=== PATIENT | male | born 1995 | race Caucasian/White ===

== ENCOUNTER 2025-01-22 17:27 | Emergency (ER) | payer OTHER, SELFPAY ==
--- NOTE | ~2025-01-22 | XR_ITS ---
CLINICAL HISTORY: plantar pain 3 view left foot Comparison: None available Findings: No displaced fracture or dislocation. Mild old deformities about the 1st and 2nd tarsal-metatarsal articulation with osteophyte versus prominent ligament calcification. Mild soft tissue swelling including of the forefoot. No radiopaque retained foreign body. IMPRESSION: 1. No acute fracture or dislocation. This document has been electronically signed by: Vipin Green MD on 01/22/2025 18:46:33
--- NOTE | ~2025-01-22 | XR_ITS ---
CLINICAL HISTORY: L ankle pain, atraumatic 3 view left ankle Comparison: None Findings: No acute displaced fractures or dislocations. Calcific tendinitis of the Achilles insertion. Mild soft tissue swelling with moderate effusion of the ankle No radiopaque foreign body. IMPRESSION: 1. No acute fracture or dislocation. 2. Calcific tendinitis of the Achilles insertion. 3. Ankle effusion present This document has been electronically signed by: Vipin Green MD on 01/22/2025 18:47:38
--- NOTE | ~2025-01-22 | US_ITS ---
CLINICAL HISTORY: L calf pain Venous duplex ultrasound left lower extremity Comparison: None Findings: The visualized deep veins are fully compressible with normal Doppler color flow and spectral tracings. Imaged superficial soft tissues are unremarkable. IMPRESSION: 1. Negative for left lower extremity deep vein thrombosis. This document has been electronically signed by: Vipin Green MD on 01/22/2025 20:03:10
[2025-01-22 17:41] VITALS: BP 144/94; PULSE 90; RESP 20; TEMP 36.8; O2SAT 98; BMI 3749.8
--- NOTE | 2025-01-22 17:45 | ED.LOWEXIN ---
HPI - Extremity Injury (Lower) General Chief Complaint: Extremity Injury, Lower Stated Complaint: left leg pain from knee down Time Seen by Provider: 01/22/25 23:15 Source: patient Limitations: no limitations History of Present Illness ED Provider: Eryn Wiley PA-C HPI Narrative: 29-year-old male presents with left heel/ankle pain. Patient states that he has had ongoing discomfort for a year, however it has increased in severity over the past few days. Associated swelling that extends into the foot. Patient states he is on his feet all day at work, and that he does wear supportive shoes. There was no preceding trauma when his pain began. Related Data Previous Rx's ?Medication ?Instructions ?Recorded ketorolac 10 mg tablet 10 mg PO Q6H PRN pain #20 tabs 01/23/25 Allergies Allergy/AdvReac Type Severity Reaction Status Date / Time No Known Allergies Allergy Verified 01/22/25 17:45 Review of Systems Review of Systems: Yes all other systems are reviewed and are negative Constitutional: Constitutional: Denies fatigue and Denies fever(s) Cardiovascular: Cardiovascular: Denies chest pain and Denies dyspnea Respiratory: Respiratory: Denies dyspnea Musculoskeletal: Musculoskeletal: Reports arthralgias and Reports joint swelling Integumentary/Breasts: Skin/Breast: Denies erythema Endocrine: Endocrine: Denies fatigue PMFSH Past Medical History Attestation statement: The following information was validated with the patient. Social History Social History Advance Directives: No Advance Directives Information Provided: No Physical Exam Vital Signs: Vital Signs: Last Vital Signs Temp 98.2 F 01/22/25 23:18 Pulse 65 01/22/25 23:18 Resp 18 01/22/25 23:18 BP 127/78 01/22/25 23:18 Pulse Ox 98 01/22/25 23:18 O2 Del Method Room Air 01/22/25 23:18 BMI result Body Mass Index 3749.8 Const: Other: Alert Orientation/consciousness: patient oriented x3 Resp: Effort & Inspection: normal respiratory effort Cardio: Other: Normal peripheral perfusion Skin: Other: Warm dry no rash Neuro: General: patient oriented x3, gait normal, no focal motor deficits and CN's II-XI intact bilaterally Extrem: Other: No obvious swelling of the ankle or the foot, patient able to flex and extend, although causes pain in the calf Psych: Other: Cooperative Course Course Course Narrative: This is a Rapid Medical Examination (RME) performed by Rosa Isela Brewster PA-C in triage. Full HPI, ROS, assessment and treatment plan per primary provider in the Main ED. 29 yo male here for eval of left foot pain radiating up into LLE. pain primarily to plantar aspect. stands for prolonged periods of time at work. hx of L foot fracture 1 yr ago. no recent travel/ long car rides. +ttp of left calf. no obvious swelling/deformity to L foot/ankle Plan: labs, imaging Medical Decision Making Medical Decision Making [facility] Narrative: 29-year-old male presents with left heel/ankle pain. Patient states that he has had ongoing discomfort for a year, however it has increased in severity over the past few days. Associated swelling that extends into the foot. Patient states he is on his feet all day at work, and that he does wear supportive shoes. There was no preceding trauma when his pain began. No chronic issues History: Per patient I have considered the following differential diagnoses: Fracture, dislocation, septic joint, gout, sprain, DVT Plan: The patient has had pain for a prolonged period of time, x-rays and ultrasound to rule out DVT were obtained from triage, he has no objective swelling or erythema to suggest a septic joint, furthermore he has retained range of motion with flexion and extension. He has calcific tendinitis of the Achilles, no DVT I have independently reviewed the following tests: Labs: No leukocytosis, not anemic, no electrolyte abnormality noted X-ray left ankle: Findings: No acute displaced fractures or dislocations. Calcific tendinitis of the Achilles insertion. Mild soft tissue swelling with moderate effusion of the ankle No radiopaque foreign body. IMPRESSION: 1. No acute fracture or dislocation. 2. Calcific tendinitis of the Achilles insertion. 3. Ankle effusion present X-ray left foot: 3 view left foot Comparison: None available Findings: No displaced fracture or dislocation. Mild old deformities about the 1st and 2nd tarsal-metatarsal articulation with osteophyte versus prominent ligament calcification. Mild soft tissue swelling including of the forefoot. No radiopaque retained foreign body. IMPRESSION: 1. No acute fracture or dislocation. Doppler left lower extremity:IMPRESSION: 1. Negative for left lower extremity deep vein thrombosis. Lab Data 01/22/25 17:49 01/22/25 17:49 Labs: Lab Results 01/22/25 Range/Units 17:49 WBC 6.1 (4.8-10.8) X10*3/uL RBC 4.81 (4.60-5.80) X10*6/uL Hgb 15.4 (14.0-18.0) g/dl Hct 42.2 (42.0-52.0) % MCV 87.7 (80.0-98.0) fL MCH 32.0 (27.0-33.0) pg MCHC 36.5 H (31.0-36.0) g/dl RDW 11.9 (11.0-16.0) % Plt Count 201 (160-400) X10*3/uL MPV 10.3 (9.4-12.4) fL Immature Gran % (Auto) 0.3 (0.0-0.4) % Neut % (Auto) 50.4 (45-73) % Lymph % (Auto) 39.6 (20-40) % [place]quois % (Auto) 7.2 (2-11) % Eos % (Auto) 2.0 (0-4) % Baso % (Auto) 0.5 (0-2) % Lymph # (Auto) 2.4 (1.2-4.9) X10*3/uL [place]quois # (Auto) 0.4 (0.1-1.2) X10*3/uL Eos # (Auto) 0.1 (0.0-0.4) X10*3/uL Baso # (Auto) 0.0 (0.0-0.2) X10*3/uL Abs Immat Gran (auto) 0.02 (0.00-0.03) X10*3/uL Absolute Neuts (auto) 3.1 (2.0-8.3) x10*3/uL Absolute Nucleated RBC 0.000 (0.0-0.012) X10*3/uL Nucleated RBC % (auto) 0.0 (0.0-0.2) /100WBC Sodium 137 (135-145) mmol/L Potassium 4.4 (3.3-5.1) mmol/L Chloride 105 (96-108) mmol/L Carbon Dioxide 24 (22-29) mmol/L Anion Gap 12 (12-20) BUN 15 (9-16) mg/dL Creatinine 0.89 (0.5-1.4) mg/dL Estim Creat Clear Calc -16.4 Estimated GFR > 60 Random Glucose 95 (60-115) mg/dL Calcium 9.6 (8.4-10.2) mg/dL Magnesium 2.3 (1.6-2.6) mg/dL Total Bilirubin 0.4 (0.0-1.0) mg/dL AST 29 (5-37) U/L ALT 42 H (0-40) U/L Alkaline Phosphatase 70 (39-117) U/L Total Protein 8.2 H (6.5-8.0) g/dL Albumin 4.6 (3.5-5.0) g/dL Discharge Plan Discharge Clinical Impression: Calcific Achilles tendinitis of left lower extremity Patient Disposition: Home, Self-Care Instructions: Achilles Tendinitis (ED) Additional Instructions: You have tendonitis of the Achilles tendon. See home care instructions. You need to purchase a compression sleeve, this will help support the joint and ease the pain associated with the inflammation. While resting, elevate the leg and ice the area several times a day. Use the ketorolac for pain, this is an anti-inflammatory, take it with food. Be sure to wear a good supportive sneaker. You need to establish primary care, I will provide you with a contact, you can call her office to see if she is accepting new patients, if she is not, perhaps there is another provider within her group that is. You may require physical therapy, that would be initiated by primary care. Prescriptions: New ketorolac 10 mg tablet 10 mg PO Q6H PRN (Reason: pain) Qty: 20 0RF Rx Instructions: maximum total duration of 5 days from all oral, intranasal, or parenteral formulations. The patient received an intramuscular dose of Toradol in the emergency department. Stand Alone Forms: Work/School Release Print Language: Mongolian
[2025-01-22 17:53] LABS: MANUAL DIFF FLAG NO
[2025-01-22 17:54] LABS: Basophils Percent Auto 0.5 % (0-2); Eosinophils Absolute Auto 0.1 X10*3/uL (0.0-0.4); Hematocrit 42.2 % (42.0-52.0); Hemoglobin 15.4 g/dl (14.0-18.0); Imm Gran Abs Auto 0.02 X10*3/uL (0.00-0.03); Imm Gran Pct Auto 0.3 % (0.0-0.4); Lymphocytes Absolute Auto 2.4 X10*3/uL (1.2-4.9); Lymphocytes Percent Auto 39.6 % (20-40); Mean Corpuscular HGB Conc 36.5 g/dl (31.0-36.0); Mean Corpuscular Volume 87.7 fL (80.0-98.0); Mean Platelet Volume 10.3 fL (9.4-12.4); Monocytes Absolute Auto 0.4 X10*3/uL (0.1-1.2); Monocytes Percent Auto 7.2 % (2-11); Neutrophils Absolute Auto 3.1 x10*3/uL (2.0-8.3); Neutrophils Percent Auto 50.4 % (45-73); Platelet Count 201 X10*3/uL (160-400); Red Blood Count 4.81 X10*6/uL (4.60-5.80); Red Cell Distribution Width 11.9 % (11.0-16.0); White Blood Count 6.1 X10*3/uL (4.8-10.8)
[2025-01-22 18:07] LABS: Alanine Aminotransferase 42 U/L (0-40); Albumin Level 4.6 g/dL (3.5-5.0); Alkaline Phosphatase 70 U/L (39-117); Anion Gap 12 (12-20); Aspartate Amino Transferase 29 U/L (5-37); Bilirubin Total 0.4 mg/dL (0.0-1.0); Blood Urea Nitrogen 15 mg/dL (9-16); Calcium 9.6 mg/dL (8.4-10.2); Carbon Dioxide 24 mmol/L (22-29); Chloride 105 mmol/L (96-108); Creatinine Clr Calc Pharmacy -16.4; Estimated Glomerular Filt Rate > 60; Glucose Random 95 mg/dL (60-115); Magnesium 2.3 mg/dL (1.6-2.6); Potassium 4.4 mmol/L (3.3-5.1); Sodium 137 mmol/L (135-145); Total Protein 8.2 g/dL (6.5-8.0)
[2025-01-22 23:18] VITALS: BP 127/78; PULSE 65; RESP 18; TEMP 36.8; O2SAT 98
[2025-01-23] MEDS: Ketorolac Tromethamine 15 MG/ML VIAL IM (00:43)
[2025-01-23 00:54] VITALS: BP 126/85; PULSE 65; RESP 18; TEMP 36.6; O2SAT 97
[2025-01-23 01:02] VITALS: BP 126/85; PULSE 65; RESP 18; TEMP 36.6; O2SAT 97
== END 2025-01-23 01:07 | disposition home or self-care (01) ==
PROVIDERS: Physician Assistant Medical; Emergency Provider Emergency Medicine Emergency Medical Services
DX: M76.62 Achilles tendinitis, left leg (principal); M65.872 Other synovitis and tenosynovitis, left ankle and foot; M79.662 Pain in left lower leg
CPT/HCPCS: 36415; 73610; 73630; 80053; 83735; 85025; 93971; 96372; 99283; 99284; J1885

== ENCOUNTER → 2025-01-22 17:42 | Outpatient (BNV) | payer OTHER, SELFPAY | PROVIDERS: Visit Provider Radiology Neuroradiology | DX: M79.662 Pain in left lower leg (principal); M65.262 Calcific tendinitis, left lower leg; M25.472 Effusion, left ankle; M79.672 Pain in left foot | CPT/HCPCS: 73610; 73630; 93971 ==

== ENCOUNTER 2025-03-09 08:46 | Emergency (ER) | payer OTHER, SELFPAY ==
--- NOTE | ~2025-03-09 | XR_ITS ---
EXAMINATION: XR CHEST CLINICAL INFORMATION: cough, right sided pain COMPARISON: None available. TECHNIQUE: 2 views of the chest were obtained. FINDINGS: The cardiac, hilar, and mediastinal contours are normal. The lungs are clear bilaterally. There is no pneumothorax or pleural effusion. There is no focal osseous or soft tissue abnormality. XR/XR chest 2V IMPRESSION: Normal chest. Electronically signed by: Elfego Goodrich MD 03/09/2025 09:39 AM EDT
[2025-03-09 08:52] VITALS: BP 131/87; PULSE 78; RESP 18; TEMP 36.7; O2SAT 97; BMI 27.0
--- NOTE | 2025-03-09 09:14 | ED_ITS ---
HPI - General Adult General Chief complaint: Upper Respiratory Symptoms Stated complaint: bodyaches, chills, headache, lung pain Time Seen by Provider: 03/09/25 09:14 History of Present Illness ED Provider: Vinny HILTON narrative: The patient is a 29-year-old male who has felt unwell for about 2 days. He has had a lot of body aches, especially in his chest. He has had some right-sided chest pain. He has had a nonproductive cough. He has had a bit of a headache. He has also had diarrhea. He has felt feverish at home but did not check his temperature. He has no sore throat. Related Data Previous Rx's ?Medication ?Instructions ?Recorded ketorolac 10 mg tablet 10 mg PO Q6H PRN pain #20 tabs 01/23/25 Allergies Allergy/AdvReac Type Severity Reaction Status Date / Time bee pollen [bee stings] Allergy Anaphylaxis Verified 03/09/25 08:54 diphenhydramine AdvReac Palpitation Verified 03/09/25 08:54 [From Benadryl] s ibuprofen AdvReac Palpitation Verified 03/09/25 08:54 s Review of Systems Review of Systems: Yes all other systems are reviewed and are negative Physical Exam ED Vital Signs: Vital Signs - 24 hr 03/09/25 08:52 03/09/25 10:00 03/09/25 10:08 Temperature 98.1 F 98.3 F Pulse Rate 78 72 Respiratory Rate 18 16 Blood Pressure 131/87 128/84 Pulse Oximetry 97 99 98 Oxygen Delivery Method Room Air Room Air Room Air 03/09/25 10:18 Temperature 98.3 F Pulse Rate 76 Respiratory Rate 16 Blood Pressure 122/56 L Pulse Oximetry 100 Oxygen Delivery Method Room Air BMI result Body Mass Index 27.0 Const Other: The patient is awake and alert and looks as if he is an ordinarily healthy 29-year-old. He does not appear in any distress. Orientation/consciousness: patient oriented x3 HENMT Other: Face is symmetrical, mucous membranes moist, the posterior pharynx is normal. Eyes General: appearance normal, both eyes and all related structures Neck Neck: Yes full ROM and Yes no lymphadenopathy Resp Effort & Inspection: normal respiratory effort Auscultation: clear to auscultation bilaterally Cardio Rate: regular rate Rhythm: regular rhythm Heart sounds: S1 normal heart sound present and S2 normal heart sound present GI Other: The abdomen is soft. The patient reports diffuse abdominal tenderness without rebound or guarding. Skin Other: Skin is dry and unremarkable General skin exam: no rashes or lesions noted Neuro General: patient oriented x3, gait normal, tone normal, moves all extremities, no focal motor deficits and CN's II-XI intact bilaterally Extrem Other: No calf swelling or tenderness, no asymmetry, no edema Medical Decision Making Medical Decision Making MDM Narrative: The patient is a 29-year-old male with no significant past medical history who presents with 2 days of constitutional symptoms suggestive of a viral illness including body aches and diarrhea. Clinically he looks well. Vital signs unremarkable. He had a mild cough and some right-sided chest discomfort. He is PERC negative. Chest x-ray is clear. He is negative for COVID, influenza, and RSV. He was reassured that he does not seem to be severely ill. I explained I think he has a viral illness that we will need to run its own course. He was given a work note. He was advised to try to get a primary care doctor. Lab Data Labs: Lab Results 03/09/25 Range/Units 09:04 Influenza Type A (PCR) NEGATIVE (Negative) Influenza Type B (PCR) NEGATIVE (Negative) RSV RNA Qual (PCR) NEGATIVE (Negative) SARS-CoV-2 RNA (RT-PCR) NEGATIVE (Negative) Discharge Plan Discharge Clinical Impression: Viral illness Patient Disposition: Home, Self-Care Instructions: Viral Syndrome (ED) Additional Instructions: Your chest x-ray is clear and you have tested negative for COVID, the flu, and RSV. I suspect that you have some other kind of viral illness that I believe will be self-limiting and should get better on its own over the next few days. You may use [id number] acetaminophen and ibuprofen as needed for discomfort. I have sent a prescription for omeprazole which you may use for any abdominal symptoms you feel it is helpful for. Please work on trying to get a new primary care doctor. I have provided some contact information for some practices which may take your insurance. Return to the emergency room if significantly worse. Prescriptions: No Action ketorolac 10 mg tablet 10 mg PO Q6H PRN (Reason: pain) Qty: 20 0RF Rx Instructions: maximum total duration of 5 days from all oral, intranasal, or parenteral formulations. The patient received an intramuscular dose of Toradol in the emergency department. Referrals: [facility] Primary Care, [facility] [Provider Group] (Needs PCP) Joceline Gomez MD [Physician] - (needs PCP) Stand Alone Forms: Work/School Release Interventions: ED Discharge Assessment Last Done: 03/09/25 10:18 Discharge Date/Time: 03/09/25 10:22 Print Language: Bermudian
[2025-03-09 10:00] VITALS: O2SAT 99
[2025-03-09 10:05] LABS: Influenza A PCR NEGATIVE (Negative); Influenza B PCR NEGATIVE (Negative); Resp Syncy Virus RNA Qual PCR NEGATIVE (Negative); SARS COV2 PCR INHOUSE NEGATIVE (Negative)
[2025-03-09 10:08] VITALS: BP 128/84; PULSE 72; RESP 16; TEMP 36.8; O2SAT 98
[2025-03-09 10:18] VITALS: BP 122/56; PULSE 76; RESP 16; TEMP 36.8; O2SAT 100
== END 2025-03-09 10:22 | disposition home or self-care (01) ==
PROVIDERS: Emergency Provider Emergency Medicine
DX: B34.9 Viral infection, unspecified (principal); R05.9 Cough, unspecified; R07.89 Other chest pain; R51.9 Headache, unspecified; R19.7 Diarrhea, unspecified; Z03.818 Encounter for observation for suspected exposure to other biological agents ruled out
CPT/HCPCS: 0241U; 71046; 99283; 99284

== ENCOUNTER → 2025-03-09 09:22 | Outpatient (BNV) | payer OTHER, SELFPAY | PROVIDERS: Emergency Provider Emergency Medicine; Visit Provider Radiology Diagnostic Radiology | DX: R05.9 Cough, unspecified (principal); R07.9 Chest pain, unspecified | CPT/HCPCS: 71046 ==

== ENCOUNTER 2025-03-25 00:40 | Emergency (ER) | payer OTHER, SELFPAY ==
[2025-03-25 00:52] VITALS: BP 136/84; BP 142/108; PULSE 120; PULSE 96; RESP 20; TEMP 36.7; O2SAT 96; O2SAT 97; BMI 27.9
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
--- NOTE | 2025-03-25 01:07 | PC.NURSE ---
Product Development Director at bedside with patient. SANE nurse to be called once pt is medically cleared.
--- NOTE | 2025-03-25 01:37 | PC.NURSE ---
Pt medically cleared. Charge nurse made aware to contact SANE nurse and advocate.
--- NOTE | 2025-03-25 01:45 | PC.NURSE ---
Call placed to EMILY examiner, ETA [phone]. [employer] advocate also paged.
--- NOTE | 2025-03-25 02:46 | PC.NURSE ---
EMILY nurse at bedside.
[2025-03-25 02:53] LABS: Alanine Aminotransferase 41 U/L (0-40); Aspartate Amino Transferase 29 U/L (5-37); Creatinine Clr Calc Pharmacy 131.2; Estimated Glomerular Filt Rate > 60
[2025-03-25 04:49] VITALS: BP 121/84; PULSE 86; RESP 14; TEMP 36.6; O2SAT 97
--- NOTE | 2025-03-25 04:57 | PC.NURSE ---
Pt declines to take prophylactic medications as pt is already on Pep, Descovy, and takes one daily. Pt advised to continue Descovy as prophylactics per Dr. Villanueva. Pt reports understanding.
[2025-03-25 04:59] VITALS: BP 121/84; PULSE 86; RESP 14; TEMP 36.6; O2SAT 97
[2025-03-25 08:02] LABS: Syphilis Screen Reactive (Nonreactive)
[2025-03-25 08:04] LABS: HBS Num1 0.67 mIU/mL (0-7.99); HBsAGNum1 0.35 S/CO (0.00-0.99); HIV AB/AG Nonreactive (Nonreactive); HIV Num 1 0.06 S/CO (0.00-0.99); Hepatitis B Surface Antigen Negative (Negative); ~HepC Num1 0.19 S/CO (0.00-0.79); ~Hepatitis B Surface Antibody NONREACTIVE (Nonreactive); ~Hepatitis C Antibody Nonreactive (Nonreactive)
[2025-03-25 11:56] LABS: CT PCR NOT DETECTED (Not Detect.); NG PCR NOT DETECTED (Not Detect.)
[2025-03-30 15:01] LABS: RPR Quantitative Reactive 1:8 (Nonreactive)
[2025-03-30 15:02] LABS: T.Pallidum Particle Agg Test Reactive (Nonreactive)
== END 2025-03-25 05:15 | disposition home or self-care (01) ==
LOC: HO.ED 05:08
PROVIDERS: Physician Assistant Medical; Emergency Provider Internal Medicine
DX: T74.21XA Adult sexual abuse, confirmed, initial encounter (principal); Y07.9 Unspecified perpetrator of maltreatment and neglect; A53.9 Syphilis, unspecified
CPT/HCPCS: 36415; 82565; 84450; 84460; 86592; 86706; 86780; 86803; 87340; 87389; 87491; 87591; 99285

== ENCOUNTER 2025-04-05 12:45 | Emergency (ER) | payer OTHER, SELFPAY ==
--- NOTE | ~2025-04-05 | XR_ITS ---
EXAMINATION: XR LUMBOSACRAL SPINE CLINICAL INFORMATION: atraumatic pain COMPARISON: None available. TECHNIQUE: Three views of the lumbosacral spine. FINDINGS: Endplate sclerosis, L5-S1 L4-5 and L3-4 levels. No acute cortical disruption or malalignment. No lytic or blastic lesions. Metallic piercing likely in the umbilical's. XR/XR lumbar spine 2-3V IMPRESSION: Mild multilevel thoracolumbar spondylosis. Electronically signed by: Benoit Castillo MD 04/05/2025 02:00 PM EDT
[2025-04-05 13:15] VITALS: BP 120/80; PULSE 81; RESP 16; TEMP 36.8; O2SAT 96; BMI 27.3
--- NOTE | 2025-04-05 13:17 | ED.GENADULT ---
HPI - General Adult General Chief complaint: Back Pain/Injury Stated complaint: back pain Time Seen by Provider: 04/05/25 15:55 Source: patient Mode of arrival: ambulatory Limitations: no limitations History of Present Illness ED Provider: PATTI BREWSTER PA-C HPI narrative: 29 year old male presents to the ED today for evaluation of acute on chronic lower back pain x2 days. Pain runs along entire lower back with intermittent radiation down LLE. States ?I think I pulled a muscle in my back?. Has trialed Tylenol and heating pad at home with some improvement. Denies any numbness or tingling. No difficulty ambulating. Denies any blunt injury or trauma. Denies recent heavy lifting. Denies history of IV drug use. Denies history of spinal surgeries. Denies saddle anesthesia, bowel or bladder incontinence or retention. Denies any urinary symptoms. Related Data Previous Rx's ?Medication ?Instructions ?Recorded ketorolac 10 mg tablet 10 mg PO Q6H PRN pain #20 tabs 01/23/25 cyclobenzaprine 5 mg tablet 5 mg PO Q8H PRN muscle spasm #7 04/05/25 tabs lidocaine 5 % topical patch 1 patch topical DAILY #15 ea 04/05/25 (Lidoderm) Allergies Allergy/AdvReac Type Severity Reaction Status Date / Time bee pollen [bee stings] Allergy Anaphylaxis Verified 04/05/25 13:18 diphenhydramine AdvReac Palpitation Verified 04/05/25 13:18 [From Benadryl] s ibuprofen AdvReac Palpitation Verified 04/05/25 13:18 s Review of Systems Review of Systems: Yes all other systems are reviewed and are negative [facility] Past Medical History Attestation statement: The following information was validated with the patient. Source: old records reviewed and nursing notes reviewed Social History Social History Advance Directives: No Advance Directives Information Provided: No Physical Exam ED Vital Signs: Vital Signs - 24 hr 04/05/25 13:15 04/05/25 16:34 Temperature 98.2 F 98.2 F Pulse Rate 81 81 Respiratory Rate 16 16 Blood Pressure 120/80 120/80 Pulse Oximetry 96 96 Oxygen Delivery Method Room Air Room Air BMI result Body Mass Index 27.3 Vital signs stable afebrile General: Well appearing, in no acute distress. Skin: Warm, dry, intact. No rashes or lesions. Head: Normocephalic, atraumatic. EENT: Hearing is intact b/l. Conjunctiva clear. PERRLA. EOM intact. Moist mucous membranes.? Cardiac: Chest wall symmetric Lungs: Normal respiratory effort without accessory muscle use Back: No midline spinous tenderness or step-off deformity. There is tenderness to bilateral lumbar paraspinal musculature. Ext: Upper and lower extremities atraumatic, without tenderness, deformity, swelling or erythema Neuro: AOx3. Normal speech. Strength 5/5 intact throughout. Sensation intact to light touch. NV intact distally. Ambulating with steady gait. Course Course Course Narrative: 04/05/25 1318 SVETA Correa This is a Rapid Medical Examination (RME) performed by Rosa Isela Brewster PA-C in triage. Full HPI, ROS, assessment and treatment plan per primary provider in the Main ED. Hx: 29 yo M hx of chronic back pain here w/ acute on chronic lower back pain. pain runs across his entire low back, rad down L leg. no ivdu. no spinal surgery. tylenol/ heating pads help w/ pain. believes he pulled a muscle. Plan: xr Reevaluation(s) Reevaluation #1: X-ray lumbar spine without fracture or subluxation. Exam consistent with muscle pain. Treated with Toradol in the ED. will send home with lidocaine patches and Flexeril. Patient has remained stable throughout ED visit today. Discussed worrisome signs and symptoms and when to return to the ED. All questions answered at this time. Patient is agreeable with disposition and stable for discharge. Medications Administered Discontinued Medications Generic Name Dose Route Start Last Admin Trade Name Freq PRN Reason Stop Dose Admin Ketorolac Tromethamine 30 mg 04/05/25 15:59 04/05/25 16:06 Ketorolac Tromethamine 30 Mg/Ml Vial IM 04/05/25 16:00 30 mg ONCE ONE Administration Medical Decision Making Medical Decision Making MDM Narrative: 29 year old male presents to the ED today for evaluation of acute on chronic lower back pain x2 days. Vital signs stable. Afebrile. He is nontoxic-appearing and in no acute distress. On exam, there is no midline spinous tenderness or step-off deformity. He has tenderness to palpation over bilateral lumbar paraspinal muscles without palpable spasm, deformity or fluctuance. Neurovascularly intact distally, sensation intact to light touch throughout, ambulating with steady gait. Differential diagnosis includes muscle spasm, MSK sprain/strain, fracture, subluxation, contusion, lumbar radiculopathy, arthritis. Unlikely cauda equina, Guillain-[place], epidural abscess, cord compression. Presentation not consistent with UTI, nephrolithiasis, renal colic. Plan for xrs, pain control, and re-evaluation. Differential Diagnosis Differential Diagnoses: The differential diagnosis associated with the presentation includes as above Admission/Observation Not indicated Independent Interpretation I performed an independent interpretation of an: Plain X-Ray Interpretation: X-ray lumbar spine without fracture Radiology Impression Discussion of test interpretation with radiology: I have reviewed the radiologist's reading. Radiologist Impression: Procedure(s): XR lumbar spine 2-3V Accession Number(s): [id number] cc: Physician,None ; Patti Brewster~ EXAMINATION: XR LUMBOSACRAL SPINE CLINICAL INFORMATION: atraumatic pain COMPARISON: None available. TECHNIQUE: Three views of the lumbosacral spine. FINDINGS: Endplate sclerosis, L5-S1 L4-5 and L3-4 levels. No acute cortical disruption or malalignment. No lytic or blastic lesions. Metallic piercing likely in the umbilical's. XR/XR lumbar spine 2-3V IMPRESSION: Mild multilevel thoracolumbar spondylosis. Electronically signed by: Benoit Castillo MD 04/05/2025 02:00 PM EDT External Record Review External record reviewed: Inpatient record Prescription Management I considered prescription management with: Other (Flexeril, lidocaine patch) Social Determinants Patient?s care significantly limited by Social Determinants of Health including: Other Social Determinant of Health Critical Care Time Critical Care Time Critical Care Time: No Discharge Plan Discharge Clinical Impression: Lumbar radiculopathy Patient Disposition: Home, Self-Care Instructions: Lumbar Radiculopathy (ED), Lower Back Exercises (ED) Additional Instructions: You were evaluated in the Emergency Department today for your back pain.? Your evaluation did not show signs of medical conditions requiring emergent intervention at this time. Avoid bending, lifting, or twisting. Use ice several times per day for 20 minutes at a time for the next 48 hours and then change to heat. I recommend you take 600mg ibuprofen every 6 hours or tylenol 650mg every 6 hours as needed for pain. If needed, you can alternate these medications so that you take one medication every 3 hours. For example, at noon take ibuprofen, then at 3pm take tylenol, then at 6pm take ibuprofen. Flexeril is a muscle relaxer. Take this at night as it makes you drowsy. Do not drive, drink alcohol, or operate machinery while taking it. Lidoderm patches are numbing patches. Apply to painful areas. Please schedule an appointment for follow-up with your primary care provider this week for further evaluation of your symptoms. Return to the Emergency Department if you experience worsening back pain, difficulty walking, fevers, numbness, tingling, incontinence, or any other concerning symptoms. In the case of an emergency call 911. Prescriptions: New lidocaine [Lidoderm] 5 % adhesive patch,medicated 1 patch topical DAILY Qty: 15 0RF Rx Instructions: leave on most painful area for up to 12 hrs cyclobenzaprine 5 mg tablet 5 mg PO Q8H PRN (Reason: muscle spasm) Qty: 7 0RF No Action ketorolac 10 mg tablet 10 mg PO Q6H PRN (Reason: pain) Qty: 20 0RF Rx Instructions: maximum total duration of 5 days from all oral, intranasal, or parenteral formulations. The patient received an intramuscular dose of Toradol in the emergency department. Referrals: Physician,None [Primary Care Provider] - Stand Alone Forms: Work/School Release Interventions: ED Discharge Assessment Last Done: 04/05/25 16:34 Discharge Date/Time: 04/05/25 16:34 Print Language: Swazi
[2025-04-05] MEDS: Ketorolac Tromethamine 30 MG/ML VIAL IM (16:06)
[2025-04-05 16:34] VITALS: BP 120/80; PULSE 81; RESP 16; TEMP 36.8; O2SAT 96
== END 2025-04-05 16:34 | disposition home or self-care (01) ==
PROVIDERS: Emergency Provider Emergency Medicine Emergency Medical Services
DX: M54.16 Radiculopathy, lumbar region (principal); M54.50 Low back pain, unspecified
CPT/HCPCS: 72100; 96372; 99283; 99284; J1885

== ENCOUNTER → 2025-04-05 13:19 | Outpatient (BNV) | payer OTHER, SELFPAY | PROVIDERS: Visit Provider Radiology Diagnostic Radiology | DX: M54.50 Low back pain, unspecified (principal) | CPT/HCPCS: 72100 ==